=== PATIENT | female | born 1985 | race African-American/Black ===

== ENCOUNTER 2016-08-11 19:27 | Observation (INO) | payer OTHER ==
[2016-08-11] MEDS ORDERED: IV RINGERS,LACTATED 1000ML 1,000 ML IV SCH (19:43)
[2016-08-11 20:02] LABS: BILIRUBIN,URINE NEGATIVE (NEG); GLUCOSE,URINE NEGATIVE (NEG); NITRITE,URINE NEGATIVE (NEG); PH,URINE 6.5; PROTEIN,URINE NEGATIVE (NEG-TRACE); UROBILINOGEN,URINE 0.2 mg/dL (0.2 mg/dL)
[2016-08-11 20:09] LABS: BACTERIA,URINE MODERATE /HPF (0-FEW); RBC,URINE 0 /HPF (0-2); SQUAMOUS EPITHELIAL CELL,UR MANY /LPF
[2016-08-11] MEDS ORDERED: HYDROXYZINE PAMOATE 25 MG CAPSULE PO ONE (20:45)
== END 2016-08-11 21:06 | disposition home or self-care (01) ==
LOC: 3 SO LND 19:27
PROVIDERS: ADMIT Specialist; ATTEND Specialist
DX: O26.892 Other specified pregnancy related conditions, second trimester (principal); R10.30 Lower abdominal pain, unspecified; Z3A.26 26 weeks gestation of pregnancy
CPT/HCPCS: 81001; 87086; G0378; G0379; Q0177

== ENCOUNTER 2016-11-09 21:41 | Inpatient (IN) | payer OTHER ==
[~2016-11-09] VITALS: Ht 170.2 cm; Wt 116.6 kg
[2016-11-09] MEDS ORDERED: OXYTOCIN 30 UNIT/500 ML PREMIX 500 ML IV ONE (22:35)
[2016-11-09] MEDS ORDERED: LIDOCAINE 1% PF 30 ML VIAL. ONE (22:41)
[2016-11-09] MEDS ORDERED: IV RINGERS,LACTATED 1000ML 1,000 ML IV SCH (22:41)
[2016-11-09] MEDS ORDERED: LIDOCAINE 1% PF 30 ML VIAL. INJ PRN (22:45)
[2016-11-09] MEDS ORDERED: MAG HYDROX/ALUMINUM HYD/SIMETH 30 ML ORAL.SUSP PO PRN ×3 (22:45→23:45)
[2016-11-09] MEDS ORDERED: OXYTOCIN 30 UNIT/500 ML PREMIX 500 ML IV PRN ×3 (22:45→23:45)
[2016-11-09] MEDS ORDERED: fentaNYL PF VIAL 100 MCG/2 ML VIAL IV PRN (22:45)
[2016-11-09] MEDS ORDERED: ACETAMINOPHEN 325 MG TABLET. PO PRN ×3 (22:45→23:45)
[2016-11-09] MEDS ORDERED: BUTORPHANOL 2 MG/ML VIAL. IV PRN (22:45)
[2016-11-09] MEDS ORDERED: 0.9 % SODIUM CHLORIDE 10 ML DISP.SYRIN. IV PRN ×3 (22:45→23:45)
[2016-11-09] MEDS ORDERED: IBUPROFEN 600 MG TABLET. PO PRN (22:45)
[2016-11-09] MEDS ORDERED: TERBUTALINE 1 MG/ML VIAL. SQ PRN (22:45)
[2016-11-09] MEDS ORDERED: ONDANSETRON PF 4 MG/2 ML VIAL. IV PRN (22:45)
[2016-11-09 22:56] LABS: HEMATOCRIT 38.5 % (36.0-47.0); RED BLOOD COUNT 4.23 x10^6/uL (3.50-5.40); RED CELL DISTRIBUTION WIDTH 14.1 % (11.5-14.5); WHITE BLOOD COUNT 5.5 x10^3/uL (4.0-11.0)
[2016-11-09] MEDS ORDERED: HYDROCORTISONE 1% TOPICAL OINTMENT 30GM TUBE. TP PRN ×2 (23:15→23:45)
[2016-11-09] MEDS ORDERED: diphenhydrAMINE HCL 25 MG CAPSULE PO PRN ×2 (23:15→23:45)
[2016-11-09] MEDS ORDERED: ZOLPIDEM 5 MG TABLET. PO PRN ×2 (23:15→23:45)
[2016-11-09] MEDS ORDERED: PHENYLEPH/MINERAL OIL/PETROLAT RECTAL OINTMENT 28GM TUBE. RC PRN ×2 (23:15→23:45)
[2016-11-09] MEDS ORDERED: HYDROcodone/APAP 5/325MG 1 TAB TABLET PO PRN ×2 (23:15→23:45)
[2016-11-09] MEDS ORDERED: SIMETHICONE 80 MG TAB.CHEW PO PRN ×2 (23:15→23:45)
[2016-11-09] MEDS ORDERED: BENZOCAINE 20% TOPICAL AEROSOL SPRAY 57GM CAN. TP PRN ×2 (23:15→23:45)
[2016-11-09] MEDS ORDERED: MAGNESIUM HYDROXIDE 2,400 MG/30 ML ORAL.SUSP. PO PRN ×2 (23:15→23:45)
--- NOTE | 2016-11-09 23:36 | PDOC ---
VAGINAL DELIVERY DATE DATE: 11/09/16 TIME: 23:33 : 2 Para: 2 EDC: Nov 18, 2016 VACCUM ASSISTED: No PLACENTA: Spontaneous WEIGHT 11/05 Nuchal Cord: No Amniotic Fluid: Clear PAIN: Natural EPISIOTOMY: No EXTENSION: No EBL 300cc COMPLICATIONS none CONDITION stable Signs of Intrauterine Infectio: None Shoulder Dystocia: No DIAGNOSIS TIUP del Problems: YORDAN JACK MD Nov 09, 2016 23:36
[2016-11-10 03:00] VITALS: BP 144/71
[2016-11-10 04:09] VITALS: BP 121/79
[2016-11-10] MEDS ORDERED: IBUPROFEN 800 MG TABLET. PO SCH (06:00)
[2016-11-10] MEDS ORDERED: FERROUS SULFATE 325 MG TABLET. PO SCH ×2 (08:00)
[2016-11-10] MEDS: IBUPROFEN 800 MG TABLET. PO SCH ×2 (11:25→20:42)
[2016-11-10 11:26] VITALS: BP 125/76
--- NOTE | 2016-11-10 16:27 | PDOC ---
SUBJECTIVE Subjective No complaints OBJECTIVE Objective No fever Abdomen soft Vital Signs Vital Signs Date Time Temp Pulse Resp B/P (MAP) Pulse Ox O2 Delivery O2 Flow Rate FiO2 11/10/16 11:26 98.1 105 18 125/76 (92) 98.1 11/10/16 04:09 98.1 80 16 121/79 (93) 98.1 11/10/16 03:00 98.3 93 18 144/71 (95) Room Air 98.3 PHYSICAL EXAM Physical Exam Uterus firm Lochia normal ASSESSMENT/PLAN Assessment/Plan Plan dismissal in am Problems: COMMENT Lab Laboratory Tests Test 11/09/16 22:20 11/10/16 02:30 White Blood Count 5.5 x10^3/uL (4.0-11.0) Red Blood Count 4.23 x10^6/uL (3.50-5.40) Hemoglobin 13.0 g/dL (12.0-15.5) Hematocrit 38.5 % (36.0-47.0) 39.8 % (36.0-47.0) Mean Corpuscular Volume 91 fL (79-100) Mean Corpuscular Hemoglobin 31 pg (25-35) Mean Corpuscular Hemoglobin Concent 34 g/dL (31-37) Red Cell Distribution Width 14.1 % (11.5-14.5) Platelet Count 169 x10^3/uL (140-400) MILLA BARTON MD Nov 10, 2016 16:27
[2016-11-10 23:02] VITALS: BP 111/83
[2016-11-11 05:30] VITALS: BP 125/92
[2016-11-11 06:18] LABS: RPR REFLEX Non Reactive (Non Reactive)
--- NOTE | 2016-11-11 08:17 | PDOC ---
SUBJECTIVE Subjective Breast feeding the baby OBJECTIVE Objective No Problems Vital Signs Vital Signs Date Time Temp Pulse Resp B/P (MAP) Pulse Ox O2 Delivery O2 Flow Rate FiO2 11/11/16 05:30 97.6 80 18 125/92 (103) 97.6 11/10/16 23:02 97.5 81 18 111/83 (92) 97.5 11/10/16 11:26 98.1 105 18 125/76 (92) 98.1 I & O Intake and Output 11/11/16 07:00 Intake Total 2 ml Balance 2 ml Intake Blood Product IV Normal Saline Flush 2 ml PHYSICAL EXAM Physical Exam Doing well No excess bleeding ASSESSMENT/PLAN Assessment/Plan Patient can go home today will see her in 6 weeks in office Problems: MILLA BARTON MD Nov 11, 2016 08:17
[2016-11-11 11:10] VITALS: BP 121/68
[2016-11-11] MEDS: IBUPROFEN 800 MG TABLET. PO SCH (21:38)
[2016-11-11 23:06] VITALS: BP 109/76
[2016-11-12 05:41] VITALS: BP 111/78
[2016-11-12 07:30] VITALS: BP 108/77
[2016-11-12 13:10] VITALS: BP 106/79
[2016-11-12 16:00] VITALS: BP 111/84
== END 2016-11-12 16:15 | disposition home or self-care (01) | DRG 775 ==
LOC: 3 SO LND 21:41 → OBSVTOIN 21:41 → 3 NORTH 11-10 03:02
PROVIDERS: ADMIT Obstetrics & Gynecology; ATTEND Obstetrics & Gynecology
PROC: 10E0XZZ Delivery of Products of Conception, External Approach (ICD-10-PCS; principal; 2016-11-09)
PROC: 30233S1 Transfusion of Nonautologous Globulin into Peripheral Vein, Percutaneous Approach (ICD-10-PCS; 2016-11-09)
DX: O80 Encounter for full-term uncomplicated delivery (principal); Z3A.39 39 weeks gestation of pregnancy; Z37.0 Single live birth
CPT/HCPCS: 36415; 85014; 85027; 85461; 86593; 86850; 86900; 86901; C1887; G0378; J2590; J2791; J7120

== ENCOUNTER → 2020-07-02 | Outpatient (CLI) | payer MEDICAID, OTHER ==
--- NOTE | 2020-07-02 14:17 | RAD ---
EXAM: OB ULTRASOUND, > 14 WEEKS HISTORY: Unsure dates. COMPARISON: None. TECHNIQUE: Multiple grayscale images, color Doppler, and M-mode images of the uterus are obtained. FINDINGS: There is a single intrauterine gestation in cephalic presentation. The placenta is anterior and poste rior in location without evidence of placenta previa. The amount of amniotic fluid appears appropriat e. Amniotic fluid index is 11.5 cm. Cervical length is 4.6 cm. Biometrical data: BPD = 8.16 cm for 32 weeks 2 days. HC = 31.53 cm for 35 weeks 3 days. AC = 31.44 cm for 35 weeks 3 days. FL = 6.85 cm for 35 weeks 1 days. HC/AC ratio = 1.00. Overall, the estimated sonographic gestational age is 34 weeks and 5 days for an estimated date of de livery of 08/08/2020. The estimated date of delivery provided by the last menstrual period is . Estimated weight is 2580 grams. This corresponds with the 66th percentile for a gestational age of 33 weeks and 3 days based on LMP. The anatomy is not formally assessed. The heart rate is normal at 133 bpm. IMPRESSION: Single live intrauterine fetus with normal heart rate and gestational age patient also measurements o f 34 weeks and 5 days. The anatomy is not formally assessed on this exam. Electronically signed by: America Molina MD (07/02/2020 2:14 PM) [id number]
== END ==
LOC: US 13:12
PROVIDERS: ATTEND Family Medicine
DX: O26.843 Uterine size-date discrepancy, third trimester (principal); Z3A.34 34 weeks gestation of pregnancy
CPT/HCPCS: 76805